=== PATIENT | female | born 2000 | race African-American/Black ===

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

== ENCOUNTER 2021-02-20 20:48 | Emergency (ER) | payer OTHER ==
[~2021-02-20] VITALS: Ht 160 cm; Wt 49.9 kg
[2021-02-20 20:48] VITALS: BP 126/80
== END 2021-02-20 23:32 | disposition left against medical advice (07) ==
LOC: ER 20:50
DX: R10.2 Pelvic and perineal pain (principal); R20.0 Anesthesia of skin; Z53.21 Procedure and treatment not carried out due to patient leaving prior to being seen by health care provider

== ENCOUNTER 2025-04-06 17:13 | Emergency (ER) | payer SELFPAY ==
[~2025-04-06] VITALS: Ht 165.1 cm; Wt 63.7 kg
[2025-04-06 17:18] VITALS: BP 139/82; PULSE 92; RESP 15; TEMP 98.7; O2SAT 9
== END 2025-04-06 20:08 | disposition left against medical advice (07) ==
LOC: ER 17:13 → EDBD 17:13 → ER 20:08
DX: M79.661 Pain in right lower leg (principal); Z53.21 Procedure and treatment not carried out due to patient leaving prior to being seen by health care provider